=== PATIENT | female | born 1955 | race Caucasian/White ===

== ENCOUNTER 2017-09-15 16:37 | Emergency (ER) | payer MEDICARE, MEDICAID ==
[~2017-09-15] VITALS: Ht 154.9 cm; Wt 84.8 kg
[~2017-09-15 16:37] MED LIST: 'PARAFON FORTE500 M1 PO; AMARYL2 MG PO; AMARYL4 MG PO; ANTIVERT25 MG PO; ASPIRIN81 M1 PO; ATENOLOL25 MG PO; AVPAK AZITHROM250 M1 PO; CARVEDILOL6.25 MG PO; CITALOPRAM20 MG PO; CLOPIDOGREL75 MG PO; CRESTOR10 M1 PO; DIOVAN 12.5 MG-1 TAB PO; DULCOLAX5 M1 PO; ELIMITE 5%60 GM T; FLONASE ALLERG9.9 ML NS; GLUCOPHAGE1000 MG PO; HYDROCODONE BIT1 T11 PO; IBU800 MG PO; IMDUR SA30 MG PO; ISOSORBIDE DINI30 MG PO; LASIX20 MG PO; LEVOTHYROXIN0.075 MG PO; LIPITOR20 MG PO; METFORMIN500 MG PO; MIRALAX POWDER255 G1 PO; Motrin,Rufen800 MG PO; NITROSTAT0.4 MG SL; Orphenadrine C100 MG PO; POTASSIUM20 MEQ PO; Peridex 473 ML473 ML PO; RANEXA1000 M1 PO; RANITIDINE HCL150 M1 PO; SYNTHROID,LEVO25 MCG PO; TOBREX OPHTH S2.5 ML OPH; VENTOLIN H0.09 MG/AC INH; VIBRAMYCIN100 MG PO; ZANTAC 150150 MG PO; ZANTAC150 MG PO; ZORVOLEX PO; ZYRTEC10 MG PO
[2017-09-15 17:24] LABS: BASO # 0.1 10*3/uL (0.0-0.1); BASO % 0.8 % (0.0-1.0); EOS # 0.3 10*3/uL (0.0-0.4); EOS % 3.4 % (1.0-4.0); HEMOGLOBIN 11.8 g/dl (12.0-16.0); LYMPH # 2.2 10*3/uL (1.3-4.4); LYMPH % 27.5 % (27.0-41.0); MEAN CELL VOLUME 79.5 fl (81.0-99.0); MEAN CORPUSCULAR HGB CONC 32.8 g/dl (33.0-37.0); MEAN PLATELET VOLUME 11.1 fl (9.6-12.3); MONO # 0.4 10*3/uL (0.1-1.0); MONO % 4.7 % (3.0-9.0); NEUT % 63.1 % (47.0-73.0); PLATELET COUNT AUTOMATED 205 10*3/uL (130-400); RED BLOOD COUNT 4.53 10*6/uL (4.10-5.10); RED CELL DISTRI WIDTH 13.2 % (0-14.5); WHITE BLOOD COUNT 7.9 10*3/uL (4.8-10.8)
[2017-09-15 17:48] LABS: ALBUMIN 3.7 gm/dl (3.1-4.5); ALKALINE PHOSPHATASE 121 U/L (45-117); BUN 13 mg/dl (7-24); CHLORIDE 100 mmol/L (98-107); CREATININE 0.96 mg/dL (0.55-1.02); POTASSIUM 3.5 mmol/L (3.5-5.1); SGOT/AST 29 IU/L (3-35); SGPT/ALT 28 U/L (12-78); SODIUM 137 mmol/L (136-145)
[2017-09-15 18:00] LABS: BILIRUBIN NEGATIVE (NEGATIVE); BLOOD NEGATIVE (NEGATIVE); CLARITY CLEAR (CLEAR); COLOR YELLOW (YELLOW); GLUCOSE 3+ (NEGATIVE); KETONE NEGATIVE (NEGATIVE); LEUKO ESTERASE NEGATIVE (NEGATIVE); NITRITE NEGATIVE (NEGATIVE); SPECIFIC GRAVITY <= 1.005 (1.005-1.030); UROBILINOGEN 0.2 E.U./dl (0.2-1.0)
[2017-09-15 18:20] LABS: EPITHELIAL CELLS 0-2; HYALINE CAST 0-2; WBC 0-2 wbc/hpf (0-5)
== END 2017-09-15 20:04 | disposition home or self-care (01) ==
LOC: ED 16:37
PROVIDERS: Nurse Practitioner Family
DX: R73.9 Hyperglycemia, unspecified (principal); E11.9 Type 2 diabetes mellitus without complications; I25.10 Atherosclerotic heart disease of native coronary artery without angina pectoris; E78.00 Pure hypercholesterolemia, unspecified; I10 Essential (primary) hypertension; E03.9 Hypothyroidism, unspecified; Z88.0 Allergy status to penicillin; Z79.82 Long term (current) use of aspirin; Z79.899 Other long term (current) drug therapy; Z87.891 Personal history of nicotine dependence

== ENCOUNTER 2018-01-21 18:37 | Inpatient (IN) | payer MEDICARE, MEDICAID ==
[~2018-01-21] VITALS: Ht 154.9 cm; Wt 85.0 kg
[2018-01-21] VITALS (7 sets, daily range): BP systolic 106–153; BP diastolic 56–89
--- NOTE | ~2018-01-21 | PR ---
[place], [place] PROGRESS NOTE NAME: SCOTTIE CLARK [facility] #: [id number] UNIT #: [id number] ROOM: 411 DOCTOR: BLOSSOM CHAMBERS MD BIRTHDATE: [birth year] DOS: 01/23/2018 SUBJECTIVE: The patient was seen at her bedside today 01/23/2018 with her boyfriend in attendance. She is a 62-year-old woman with multiple medical problems including diabetes, hypertension, hyperlipidemia, and coronary artery disease. She states that she has had 2 or 3 stents in the past and a stress test done at the [facility] in October 2016 do show that she has had an anterior infarction. She states that she does have intermittent chest pains. Within the last 2 or 3 months, she had a stress test done by her primary embossing machine tender and was told that it showed no new changes. She presented to the hospital after experiencing 15 minutes of jaw pain at rest. Her electrocardiogram showed no acute changes and her cardiac biomarkers were all normal. She was observed overnight and now is free of symptoms. She is anxious for discharge. PHYSICAL EXAMINATION: VITAL SIGNS: Today, her pulse is 67 and regular, blood pressure is 156/70. She is afebrile. NECK: Supple. She has no jugular distention. Carotids are full. I heard no bruits. LUNGS: Respirations were unlabored. Her chest was clear. HEART: Had a regular rhythm. She had an S4 gallop, but no S3. ABDOMEN: Obese. EXTREMITIES: Showed no edema. IMPRESSION: 1. Jaw pain, suspicious for angina. 2. History of coronary artery disease, records not currently available. 3. Type 2 diabetes mellitus. 4. Hypertension. 5. Hyperlipidemia. 6. Obesity. PLAN: The patient does have a embossing machine tender with whom she normally follows. Reportedly, that physician did check her recently and stated that her stress test was low risk. If she continues to have symptoms, she may require repeat catheterization even though she has a normal stress test, but for now since she has no EKG changes and no elevation in troponin, I believe that she could be discharged safely for outpatient followup. We will remain available to see her if needed. We thank Dr. Morgan, for asking our advice regarding the patient's care. [place], [place] PROGRESS NOTE NAME: SCOTTIE CLARK UNIT #: [id number] ROOM: 411 DOCTOR: BLOSSOM CHAMBERS MD BIRTHDATE: [birth year] BLOSSOM CHAMBERS MD CM:PNTRANS [id number] BLOSSOM CHAMBERS MD 01/23/18 1655 interface
[2018-01-21 19:01] LABS: BASO % 0.6 % (0.0-1.0); EOS # 0.2 10*3/uL (0.0-0.4); EOS % 2.9 % (1.0-4.0); HEMATOCRIT 32.6 % (37.0-47.0); HEMOGLOBIN 10.2 g/dl (12.0-16.0); LYMPH # 2.2 10*3/uL (1.3-4.4); LYMPH % 30.6 % (27.0-41.0); MEAN CELL VOLUME 82.5 fl (81.0-99.0); MEAN CORPUSCULAR HGB 25.8 pg (27.0-31.0); MEAN CORPUSCULAR HGB CONC 31.3 g/dl (33.0-37.0); MEAN PLATELET VOLUME 11.3 fl (9.6-12.3); MONO # 0.4 10*3/uL (0.1-1.0); MONO % 5.8 % (3.0-9.0); NEUT # 4.3 10*3/uL (2.3-7.9); NEUT % 59.4 % (47.0-73.0); PLATELET COUNT AUTOMATED 194 10*3/uL (130-400); RED BLOOD COUNT 3.95 10*6/uL (4.10-5.10); RED CELL DISTRI WIDTH 15.2 % (0-14.5); WHITE BLOOD COUNT 7.3 10*3/uL (4.8-10.8)
[2018-01-21 19:11] LABS: ACT PARTIAL THROMBO TIME 23.3 SECONDS (20.8-31.5)
[2018-01-21 19:17] LABS: ALBUMIN 3.5 gm/dl (3.1-4.5); ALKALINE PHOSPHATASE 97 U/L (45-117); BUN 9 mg/dl (7-24); CHLORIDE 110 mmol/L (98-107); POTASSIUM 3.4 mmol/L (3.5-5.1); SGOT/AST 22 IU/L (3-35); SGPT/ALT 28 U/L (12-78); SODIUM 142 mmol/L (136-145); TOTAL PROTEIN 6.9 gm/dL (6.4-8.2)
[2018-01-21 19:18] LABS: TROPONIN I < 0.015 ng/ml (<0.045)
[2018-01-22] VITALS (7 sets, daily range): BP systolic 106–180; BP diastolic 35–88
[2018-01-22 07:02] LABS: BASO % 0.4 % (0.0-1.0); EOS # 0.2 10*3/uL (0.0-0.4); EOS % 2.7 % (1.0-4.0); HEMATOCRIT 32.7 % (37.0-47.0); LYMPH # 1.9 10*3/uL (1.3-4.4); LYMPH % 24.3 % (27.0-41.0); MEAN CELL VOLUME 82.4 fl (81.0-99.0); MEAN CORPUSCULAR HGB 25.2 pg (27.0-31.0); MEAN CORPUSCULAR HGB CONC 30.6 g/dl (33.0-37.0); MEAN PLATELET VOLUME 11.3 fl (9.6-12.3); MONO # 0.4 10*3/uL (0.1-1.0); MONO % 5.3 % (3.0-9.0); NEUT # 5.2 10*3/uL (2.3-7.9); NEUT % 66.8 % (47.0-73.0); PLATELET COUNT AUTOMATED 202 10*3/uL (130-400); RED BLOOD COUNT 3.97 10*6/uL (4.10-5.10); RED CELL DISTRI WIDTH 15.4 % (0-14.5); WHITE BLOOD COUNT 7.7 10*3/uL (4.8-10.8)
[2018-01-22 07:48] LABS: ALBUMIN 3.2 gm/dl (3.1-4.5); BUN 8 mg/dl (7-24); CHLORIDE 112 mmol/L (98-107); CHOLESTEROL 104 mg/dL (<200); HDL CHOLESTEROL 36 mg/dl (40-60); LDL CHOLESTEROL 46 mg/dL (9-159); POTASSIUM 4.1 mmol/L (3.5-5.1); SGOT/AST 20 IU/L (3-35); SGPT/ALT 25 U/L (12-78); SODIUM 144 mmol/L (136-145); TOTAL PROTEIN 6.4 gm/dL (6.4-8.2); TRIGLYCERIDES 108 mg/dl (<150); VLDL CHOLESTEROL 22 mg/dL (6-40)
[2018-01-22 07:54] LABS: ALKALINE PHOSPHATASE 85 U/L (45-117); FREE T4 1.27 ng/dl (0.76-1.46)
[2018-01-22] MEDS ORDERED: DITROPAN XL5 MG PO (13:14)
[2018-01-23] VITALS: BP 125/74
[2018-01-23 08:00] VITALS: BP 148/74
[2018-01-23 12:00] VITALS: BP 156/70
== END 2018-01-23 16:48 | disposition home or self-care (01) | DRG 392 ==
LOC: ED 18:37 → EDHOLD 20:15 → 4E 20:15
PROVIDERS: Family Medicine; Nurse Practitioner Family
DX: K21.9 Gastro-esophageal reflux disease without esophagitis (principal); E11.51 Type 2 diabetes mellitus with diabetic peripheral angiopathy without gangrene; E87.8 Other disorders of electrolyte and fluid balance, not elsewhere classified; I16.1 Hypertensive emergency; I25.10 Atherosclerotic heart disease of native coronary artery without angina pectoris; E11.65 Type 2 diabetes mellitus with hyperglycemia; E83.41 Hypermagnesemia; D64.9 Anemia, unspecified; D72.810 Lymphocytopenia; R00.1 Bradycardia, unspecified; E87.6 Hypokalemia; I10 Essential (primary) hypertension; E03.9 Hypothyroidism, unspecified; E78.00 Pure hypercholesterolemia, unspecified; E78.5 Hyperlipidemia, unspecified; E66.01 Morbid (severe) obesity due to excess calories; Z88.0 Allergy status to penicillin; Z79.899 Other long term (current) drug therapy; Z79.82 Long term (current) use of aspirin; Z98.61 Coronary angioplasty status; Z98.41 Cataract extraction status, right eye; Z90.49 Acquired absence of other specified parts of digestive tract; Z90.89 Acquired absence of other organs; Z98.51 Tubal ligation status; Z90.710 Acquired absence of both cervix and uterus; Z87.891 Personal history of nicotine dependence; Z83.3 Family history of diabetes mellitus; Z82.49 Family history of ischemic heart disease and other diseases of the circulatory system; Z80.8 Family history of malignant neoplasm of other organs or systems; Z84.89 Family history of other specified conditions; Z68.35 Body mass index [BMI] 35.0-35.9, adult

== ENCOUNTER 2018-03-03 08:17 | Inpatient (IN) | payer MEDICARE, MEDICAID ==
[~2018-03-03] VITALS: Ht 154.9 cm; Wt 85.0 kg
[2018-03-03] VITALS (7 sets, daily range): BP systolic 107–168; BP diastolic 39–69
[~2018-03-03 08:17] MED LIST changes: +DITROPAN XL5 MG PO; -ISOSORBIDE DINI30 MG PO
[2018-03-03 08:48] LABS: BASO % 0.6 % (0.0-1.0); EOS # 0.2 10*3/uL (0.0-0.4); HEMATOCRIT 34.8 % (37.0-47.0); LYMPH # 1.5 10*3/uL (1.3-4.4); LYMPH % 21.7 % (27.0-41.0); MEAN CELL VOLUME 81.5 fl (81.0-99.0); MEAN CORPUSCULAR HGB 25.8 pg (27.0-31.0); MEAN CORPUSCULAR HGB CONC 31.6 g/dl (33.0-37.0); MEAN PLATELET VOLUME 11.3 fl (9.6-12.3); MONO # 0.4 10*3/uL (0.1-1.0); NEUT # 4.8 10*3/uL (2.3-7.9); PLATELET COUNT AUTOMATED 202 10*3/uL (130-400); RED BLOOD COUNT 4.27 10*6/uL (4.10-5.10); RED CELL DISTRI WIDTH 13.9 % (0-14.5)
[2018-03-03 09:03] LABS: ALBUMIN 3.7 gm/dl (3.1-4.5); ALKALINE PHOSPHATASE 118 U/L (45-117); BUN 15 mg/dl (7-24); CHLORIDE 105 mmol/L (98-107); CREATININE 0.95 mg/dL (0.55-1.02); LIPASE 193 U/L (73-393); POTASSIUM 3.9 mmol/L (3.5-5.1); SGOT/AST 35 IU/L (3-35); SGPT/ALT 35 U/L (12-78); SODIUM 139 mmol/L (136-145); TOTAL PROTEIN 7.1 gm/dL (6.4-8.2)
[2018-03-03 09:05] LABS: TROPONIN I < 0.015 ng/ml (<0.045)
[2018-03-04 00:10] VITALS: BP 140/60
[2018-03-04 07:08] LABS: BASO % 0.6 % (0.0-1.0); EOS # 0.2 10*3/uL (0.0-0.4); HEMATOCRIT 34.4 % (37.0-47.0); HEMOGLOBIN 10.6 g/dl (12.0-16.0); LYMPH % 27.9 % (27.0-41.0); MEAN CELL VOLUME 82.5 fl (81.0-99.0); MEAN CORPUSCULAR HGB 25.4 pg (27.0-31.0); MEAN CORPUSCULAR HGB CONC 30.8 g/dl (33.0-37.0); MEAN PLATELET VOLUME 11.8 fl (9.6-12.3); MONO # 0.5 10*3/uL (0.1-1.0); MONO % 6.4 % (3.0-9.0); NEUT # 4.4 10*3/uL (2.3-7.9); NEUT % 61.4 % (47.0-73.0); PLATELET COUNT AUTOMATED 213 10*3/uL (130-400); RED BLOOD COUNT 4.17 10*6/uL (4.10-5.10); WHITE BLOOD COUNT 7.2 10*3/uL (4.8-10.8)
[2018-03-04 07:25] LABS: BUN 13 mg/dl (7-24); CHLORIDE 104 mmol/L (98-107); SODIUM 140 mmol/L (136-145)
[2018-03-04 07:36] LABS: CHOLESTEROL 105 mg/dL (<200); CREATININE 0.85 mg/dL (0.55-1.02); FREE T4 1.25 ng/dl (0.76-1.46); HDL CHOLESTEROL 36 mg/dl (40-60); LDL CHOLESTEROL 47 mg/dL (9-159); TRIGLYCERIDES 109 mg/dl (<150); VLDL CHOLESTEROL 22 mg/dL (6-40)
[2018-03-04 07:40] LABS: VITAMIN D, 25-HYDROXY 19.6 ng/mL (30-100)
[2018-03-04 08:00] VITALS: BP 124/77
== END 2018-03-04 12:16 | disposition home or self-care (01) | DRG 313 ==
LOC: ED 08:17 → 4E 12:33 → EDHOLD 12:33 → 4E 12:45
PROVIDERS: Family Medicine; Internal Medicine
DX: R07.9 Chest pain, unspecified (principal); I25.119 Atherosclerotic heart disease of native coronary artery with unspecified angina pectoris; E11.51 Type 2 diabetes mellitus with diabetic peripheral angiopathy without gangrene; E44.0 Moderate protein-calorie malnutrition; E11.65 Type 2 diabetes mellitus with hyperglycemia; I11.0 Hypertensive heart disease with heart failure; I50.9 Heart failure, unspecified; E66.01 Morbid (severe) obesity due to excess calories; K21.9 Gastro-esophageal reflux disease without esophagitis; E78.5 Hyperlipidemia, unspecified; E78.00 Pure hypercholesterolemia, unspecified; E03.9 Hypothyroidism, unspecified; K59.00 Constipation, unspecified; D50.9 Iron deficiency anemia, unspecified; R00.1 Bradycardia, unspecified; E55.9 Vitamin D deficiency, unspecified; Z95.5 Presence of coronary angioplasty implant and graft; Z88.0 Allergy status to penicillin; Z79.899 Other long term (current) drug therapy; Z79.82 Long term (current) use of aspirin; Z90.710 Acquired absence of both cervix and uterus; Z98.51 Tubal ligation status; Z90.49 Acquired absence of other specified parts of digestive tract; Z90.89 Acquired absence of other organs; Z87.891 Personal history of nicotine dependence; Z83.3 Family history of diabetes mellitus; Z82.49 Family history of ischemic heart disease and other diseases of the circulatory system; Z80.1 Family history of malignant neoplasm of trachea, bronchus and lung; Z84.89 Family history of other specified conditions; Z68.35 Body mass index [BMI] 35.0-35.9, adult